=== PATIENT | male | born 1975 | race Hispanic/Latino ===

== ENCOUNTER 2019-08-28 11:44 | Emergency (ER) | payer OTHER ==
[2019-08-29 14:42] LABS: SARS-CoV-2 MS2 Positive; SARS-CoV-2 N Gene Positive; SARS-CoV-2 S Gene Positive; SARS-CoV-2 by NAA DETECTED (NotDetected); SARS-CoV-2 orf1ab Positive
== END 2019-08-28 12:33 | disposition home or self-care (01) ==
LOC: ERS 11:44
DX: U07.1 COVID-19 (principal)
CPT/HCPCS: 87635; 99283; U0003

== ENCOUNTER 2019-09-06 17:25 | Emergency (ER) | payer OTHER, SELFPAY ==
[2019-09-06] MEDS ORDERED: Acetaminophen 500 MG TAB ONE (17:37)
--- NOTE | 2019-09-06 18:11 | RAD ---
EXAM: Single view of the chest HISTORY: Dyspnea COMPARISON: None FINDINGS: Single view of the chest shows a normal sized cardiomediastinal silhouette. There may be brown btle areas of airspace opacity in both lower lobes. The bones are unremarkable IMPRESSION: Possible bilateral lower lobe infiltrates.
== END 2019-09-06 19:00 | disposition home or self-care (01) ==
LOC: ERS 17:25
DX: U07.1 COVID-19 (principal)
CPT/HCPCS: 71045; 93005